=== PATIENT | female | born 1995 | race Caucasian/White ===

== ENCOUNTER 2019-10-16 22:08 | Emergency (ER) | payer OTHER ==
[~2019-10-16] VITALS: Ht 170.2 cm; Wt 86.2 kg
--- NOTE | 2019-10-16 22:34 | NUR ---
PATIENT CAME TO ER BED 9 C/O LEFT SIDED CHEST PAIN SINCE 2x DAYS AGO. PATIENT STATES THAT SHE TRIED SLEEPING TONIGHT WHEN THE PAIN IS AGRAVATED WHEN SHE COULD NOT SLEEP DUE TO PAIN 02/21. CURRENTLY 07/24 PAIN WITH SHARP/CRAMPING SENSATION. PT STATES PAIN UPON BREATHING, RELIEVED WHEN NOT BREATHING. AAOX4. NO SOB. BREATHING EVENLY AND UNLABORED ON ROOM AIR. CONNECTED TO [employer].
--- NOTE | 2019-10-16 22:50 | NUR ---
xray at bedside.
[2019-10-16 23:46] LABS: BASOPHILS # (AUTO) 0.1 /CMM (0.0-0.2); BASOPHILS % (AUTO) 0.8 % (0.0-2.0); EOSINOPHILS % (AUTO) 1.6 % (0.0-6.0); HEMATOCRIT 40 % (33-45); HEMOGLOBIN 13.2 g/dL (11.5-14.8); LYMPHOCYTES # (AUTO) 2.7 /CMM (0.8-4.8); LYMPHOCYTES % (AUTO) 26.9 % (20.0-44.0); MEAN CORPUSCULAR HGB CONC 33 g/dl (31.0-36.0); MEAN CORPUSCULAR VOLUME 86 fL (82-100); MONOCYTES # (AUTO) 0.8 /CMM (0.1-1.30); MONOCYTES % (AUTO) 8.1 % (2.0-12.0); NEUTROPHILS # (AUTO) 6.2 /CMM (1.8-8.9); NEUTROPHILS % (AUTO) 62.6 % (43.0-81.0); PLATELET COUNT (AUTO) 257 /CMM (150-450); RED BLOOD CELL COUNT(AUTO) 4.63 MIL/uL (4.0-5.2); WHITE BLOOD COUNT (AUTO) 9.9 K/uL (4.3-11.0)
[2019-10-16 23:59] LABS: CALCIUM, SERUM 9.1 mg/dL (8.5-10.1); CARBON DIOXIDE 29 mmol/L (21-32); CHLORIDE 105 mmol/L (98-107); CREATININE 0.8 mg/dL (0.6-1.3); GLUCOSE 100 mg/dL (74-106); SODIUM SERUM 142 mmol/L (136-145); UREA NITROGEN, BLOOD 13 mg/dL (7-18)
[2019-10-17 00:05] LABS: ALANINE AMINOTRANSFERASE 22 U/L (12-78); ALBUMIN 3.5 g/dL (3.4-5.0); ALKALINE PHOSPHATASE 65 U/L (46-116); ASPARTATE AMINOTRANSFERASE 10 U/L (15-37); BILIRUBIN,TOTAL 0.1 mg/dL (0.2-1.0); TOTAL PROTEIN, SERUM 7.5 g/dL (6.4-8.2)
--- NOTE | 2019-10-17 01:18 | NUR ---
Patient discharged to home in stable condition. Written and verbal after care instructions given. Patient verbalizes understanding of instruction.
--- NOTE | 2019-10-17 01:19 | NUR ---
Given/ Explained prescription to pam. Instructed not to drive or operate behind any machinery while taking Percocet Prescriptions.
[2019-10-17 01:20] VITALS: BP 121/77
== END 2019-10-17 01:20 | disposition home or self-care (01) ==
LOC: ER 22:18
DX: J84.9 Interstitial pulmonary disease, unspecified (principal); R07.89 Other chest pain; R00.0 Tachycardia, unspecified
CPT/HCPCS: 36415; 71045-TC; 80048-TC; 80076-TC; 84484-TC; 85025-TC; 85378-TC